=== PATIENT | female | born 1970 | race Caucasian/White ===

== ENCOUNTER 2022-02-11 13:27 | Emergency (ER) | payer BC ==
[~2022-02-11] VITALS: Ht 152.4 cm; Wt 61.2 kg
--- NOTE | 2022-02-11 13:35 | NUR ---
BIBRA 89 C/O NECK AND BACK OF THE HEAD PAIN S/P SLIP AND FALL. AAOX4 NOT IN DISTRESS, IN PAIN 05/19
--- NOTE | 2022-02-11 14:14 | NUR ---
RADIOLOGY CALLED FOR CT SCAN.
--- NOTE | 2022-02-11 14:24 | NUR ---
CT SCAN DONE WAITING FOR RESULT
[2022-02-11] MEDS ORDERED: HYDROCODONE/APAP 5/325MG TABLET ONE ×2 (14:49→15:57)
--- NOTE | 2022-02-11 14:50 | NUR ---
NORCO 5-325 GIVEN ORDERED BY .
[2022-02-11] MEDS ORDERED: HYDROCODONE/APAP 5/325MG TABLET PO ONE ×2 (15:00→16:00)
[2022-02-11] MEDS ORDERED: HYDR-4303 PO (16:28)
[2022-02-11 16:44] VITALS: BP 122/72
--- NOTE | 2022-02-11 16:44 | NUR ---
Patient discharged to home in stable condition. Written and verbal after care instructions given. Patient verbalizes understanding of instruction.
== END 2022-02-11 16:45 | disposition home or self-care (01) ==
LOC: ER 13:29
DX: S00.03XA Contusion of scalp, initial encounter (principal); I10 Essential (primary) hypertension; Z88.1 Allergy status to other antibiotic agents; Z60.2 Problems related to living alone; W01.0XXA Fall on same level from slipping, tripping and stumbling without subsequent striking against object, initial encounter; Y93.89 Activity, other specified; Y92.89 Other specified places as the place of occurrence of the external cause; Y99.8 Other external cause status
CPT/HCPCS: 70450-TC; 72125-TC; 93880-TC